=== PATIENT | male | born 1965 | race Hispanic/Latino ===

== ENCOUNTER 2023-12-12 12:26 | Emergency (ER) | payer SELFPAY ==
[2023-12-12] MEDS ORDERED: CEPHALEXIN 250 MG CAP ONE (13:13)
[2023-12-12] MEDS ORDERED: TDAP (DIPHTH,PERTUSS(ACELL),TET VAC) 0.5 ML VIAL IMVAC ONE (13:15)
[2023-12-12] MEDS ORDERED: IBUPROFEN 200 MG TAB PO ONE (14:04)
[2023-12-12] MEDS ORDERED: IBUPROFEN 400 MG TAB ONE (14:04)
[2023-12-12 14:52] VITALS: BP 135/80; TEMP 97.8; O2SAT 99
--- NOTE | 2023-12-12 15:09 | ER ---
Nurse's Notes [facility] Name: Moustapha Morales Age: 58 yrs Sex: Male : 1965 Arrival Date: 12/12/2023 Time: 12:26 Bed 4 Private MD: Diagnosis: Amputation of tip of left middle finger Presentation: 12/11 13:08 Chief complaint: Patient states: "I work at a [employer] shop and I sliced my finger with rs5 the blade of a machine that chops meat". Coronavirus screen: At this time, the client does not indicate any symptoms associated with coronavirus-19. Ebola Screen: No symptoms or risks identified at this time. Initial Sepsis Screen: Does the patient meet any 2 criteria? Yes Does the patient have a suspected source of infection? No. Patient's initial sepsis screen is negative. Risk Assessment: Do you want to hurt yourself or someone else? Patient reports no desire to harm self or others. Onset of symptoms was December 12, 2023. 13:08 Method Of Arrival: Ambulatory rs5 13:08 Acuity: CODIE 3 rs5 Triage Assessment: 13:07 General: Appears in no apparent distress. comfortable, Behavior is calm, cooperative. rs5 Historical: - Allergies: 13:10 No Known Allergies; rs5 - PMHx: 13:10 None; rs5 - PSHx: 13:10 None; rs5 - Immunization history:: Adult Immunizations up to date. - Infectious Disease History:: Denies. - Social history:: Smoking status: Patient denies any tobacco usage or history of. Screenin:10 [facility] ED Fall Risk Assessment (Adult) History of falling in the last 3 months, rs5 including since admission No falls in past 3 months (0 pts) Confusion or Disorientation No (0 pts) Intoxicated or Sedated No (0 pts) Impaired Gait No (0 pts) Mobility Assist Device Used No (0 pt) Altered Elimination No (0 pt) Score/Fall Risk Level 0 - 2 = Low Risk Oriented to surroundings, Maintained a safe environment. Abuse screen: Denies threats or abuse. Nutritional screening: No deficits noted. Tuberculosis screening: No symptoms or risk factors identified. Assessment: 13:07 General: Appears in no apparent distress. comfortable, Behavior is calm, cooperative. rs5 13:07 Pain: Complains of pain in tip of left index finger Pain currently is 3 out of 10 on a rs5 pain scale. Quality of pain is described as aching, Is continuous. Neuro: Level of Consciousness is awake, alert, obeys commands, Oriented to person, place, time, situation. Cardiovascular: Patient's skin is warm and dry. Respiratory: Airway is patent Respiratory effort is even, unlabored, Respiratory pattern is regular, symmetrical. GI: Abdomen is round non-distended, Abd is soft and non tender X 4 quads. : No signs and/or symptoms were reported regarding the genitourinary system. EENT: No signs and/or symptoms were reported regarding the EENT system. Derm: Skin is intact, Skin is pink, warm \\T\\ dry. jagged laceration noted to tip of left index finger. Musculoskeletal: Range of motion: limited in left index finger. 14:00 Reassessment: No changes from previously documented assessment. rs5 Vital Signs: 13:08 BP 135 / 80; Pulse 77; Resp 17; Temp 97.8; Pulse Ox 99% on R/A; rs5 14:00 BP 133 / 78; Pulse 71; Resp 17; Pulse Ox 99% on R/A; rs5 ED Course: 12:27 Patient arrived in ED. rg4 12:35 Lars Rob MD is Attending Physician. britt 12:48 Fiona Lindsay FNP-C is PHCP. kb 13:08 Brendan Matos, RN is Primary Nurse. rs5 13:09 Triage completed. rs5 13:10 Patient has correct armband on for positive identification. Placed in gown. Bed in low rs5 position. Call light in reach. Side rails up X2. 13:32 Hand Left 3 View XRAY In Process Unspecified. EDMS 14:00 No provider procedures requiring assistance completed. Patient did not have IV access rs5 during this emergency room visit. Administered Medications: 13:10 Drug: Boostrix Tdap IM 0.5 ml IM once; as a single dose Route: IM; Site: left deltoid; rs5 13:40 Follow up: Response: No adverse reaction rs5 13:12 Drug: Cephalexin PO 500 mg PO once Route: PO; rs5 14:00 Follow up: Response: No adverse reaction rs5 13:50 Drug: Ibuprofen PO 600 mg PO once Route: PO; rs5 14:00 Follow up: Response: No adverse reaction rs5 Medication: 13:10 VIS not applicable for this client. rs5 Outcome: 13:48 Discharge ordered by . russell 14:00 Discharged to home ambulatory, rs5 14:00 Condition: stable 14:00 Discharge instructions given to patient, family, Instructed on discharge instructions, follow up and referral plans. medication usage, Demonstrated understanding of instructions, follow-up care, medications, Prescriptions given X 1, 14:05 Patient left the ED. rs5 Signatures: Dispatcher [employer] EDFiona Zafar, GUM ROLLING MACHINE OPERATOR-C GUM ROLLING MACHINE OPERATOR-Francoisb Lars Rob MD MD cha Garcia, Rubi rg4 Brendan Matos, RN RN rs5
--- NOTE | 2023-12-12 15:09 | EDPHYS ---
Physician Documentation [facility] Name: Moustapha Morales Age: 58 yrs Sex: Male : 1965 Arrival Date: 12/12/2023 Time: 12:26 Bed 4 Private MD: ED Physician Lars Rob HPI: 12/11 13:45 This 58 yrs old Male presents to ER via Ambulatory with complaints of kb Laceration to Finger. 13:45 Pt is a 58 year old male who presents after cutting the tip of his left middle finger kb off while making patties. States he was using a metal press to make patties and was going to fast accidentally smashing left middle finger. Historical: - Allergies: 13:10 No Known Allergies; rs5 - PMHx: 13:10 None; rs5 - PSHx: 13:10 None; rs5 - Immunization history:: Adult Immunizations up to date. - Infectious Disease History:: Denies. - Social history:: Smoking status: Patient denies any tobacco usage or history of. ROS: 13:44 Constitutional: As per HPI kb Exam: 13:44 Constitutional: This is a well developed, well nourished patient who is awake, alert, kb and in no acute distress. Head/Face: Normocephalic, atraumatic. ENT: Moist Mucous membranes Cardiovascular: Regular rate Respiratory: Respirations even and unlabored. No increased work of breathing. Talking in full sentences Abdomen/GI: Soft, non-tender. No distention MS/ Extremity: Pulses equal, no cyanosis. Neurovascular intact. Full, normal range of motion. Neuro: Awake and alert, GCS 15, oriented to person, place, time, and situation. Moves all extremities. Normal gait. 13:44 Skin: avulsion laceration/amputation of tip of left middle finger. Vital Signs: 13:08 BP 135 / 80; Pulse 77; Resp 17; Temp 97.8; Pulse Ox 99% on R/A; rs5 14:00 BP 133 / 78; Pulse 71; Resp 17; Pulse Ox 99% on R/A; rs5 MDM: 12:35 Patient medically screened. britt 13:44 Differential diagnosis: laceration, avulsion, amputation. Data reviewed: vital signs, kb nurses notes. Independent interpretation of the following test(s) in the Emergency Department X-Ray: My interpretation is amputation of tip of distal phalanx left middle finger. Counseling: I had a detailed discussion with the patient and/or guardian regarding the historical points, exam findings, and any diagnostic results supporting the discharge/admit diagnosis, radiology results, the need for outpatient follow up, a hand specialist, to return to the emergency department if symptoms worsen or persist or if there are any questions or concerns that arise at home. 13:46 ED course: Upon initial exam, surgicel and pressure dressing applied. . 12/11 13:07 Order name: Hand Left 3 View XRAY 12/11 13:47 Order name: Wound dressing: remove current dressing leaving surgicel in place. Apply kb new gauze and tube dressing; Complete Time: 13:56 Administered Medications: 13:10 Drug: Boostrix Tdap IM 0.5 ml IM once; as a single dose Route: IM; Site: left deltoid; rs5 13:40 Follow up: Response: No adverse reaction rs5 13:12 Drug: Cephalexin PO 500 mg PO once Route: PO; rs5 14:00 Follow up: Response: No adverse reaction rs5 13:50 Drug: Ibuprofen PO 600 mg PO once Route: PO; rs5 14:00 Follow up: Response: No adverse reaction rs5 Disposition Summary: 12/12/23 13:48 Discharge Ordered Notes: Location: Home kb Condition: Stable kb Diagnosis - Amputation of tip of left middle finger kb Followup: kb - With: Emergency Department - When: As needed - Reason: Worsening of condition Followup: kb - With: Private Physician - When: 2 - 3 days - Reason: Recheck today's complaints, Continuance of care, Re-evaluation by your physician Discharge Instructions: - Discharge Summary Sheet kb - Traumatic Finger Amputation kb Forms: - Medication Reconciliation Form kb - Antibiotic Education kb - Prescription Opioid Use kb - Patient Portal Instructions kb - Leadership Thank You Letter kb Prescriptions: - Cephalexin 500 mg Oral Capsule - take 1 capsule ORAL route every 8 hours for 10 days; 30 capsule; Refills: 0, kb Product Selection Permitted Signatures: Dispatcher [employer] Fiona Gonzalez FNP-C FNP-Lars gN MD MD cha Sotelo, Ricky RN RN rs5
--- NOTE | 2023-12-12 15:35 | RAD REPORT ---
EXAM DESCRIPTION: SAM CORBETT - 12/12/2023 1:31 pm CLINICAL HISTORY: PAIN COMPARISON: No comparisons TECHNIQUE: Left hand, 3 views. FINDINGS: Amputation at the level of the tuft of the third digit distal phalanx. Soft tissue swellin g and overlying gauze. There is no dislocation or periosteal reaction noted. Joint alignment is maintained. No foreign body or other soft tissue abnormality. IMPRESSION: Amputation at the level of the tuft of the third digit distal phalanx.
== END 2023-12-12 14:05 | disposition home or self-care (01) ==
LOC: ER 12:26
DX: S68.123A Partial traumatic metacarpophalangeal amputation of left middle finger, initial encounter (principal)